=== PATIENT | male | born 1970 | race Caucasian/White ===

== ENCOUNTER 2021-09-15 12:50 | Inpatient (IN) | payer OTHER ==
[2021-09-15] MEDS ORDERED: ONDANSETRON *ODT* 4 MG TABLET SL PRN (14:28)
[2021-09-15] MEDS ORDERED: LOPERAMIDE HCL 2 MG CAPSULE PO PRN (14:28)
[2021-09-15] MEDS ORDERED: MAGNESIUM HYDROX 2400MG/30ML ORAL SUSPENSION 30 ML CUP PO PRN (14:28)
[2021-09-15] MEDS ORDERED: BENZOCAINE/MENTHOL (CHLORASEPTIC ) LOZENGE MM PRN (14:28)
[2021-09-15] MEDS ORDERED: BISMUTH SUBSALICYLATE 524 MG/30 ML PO PRN (14:28)
[2021-09-15] MEDS ORDERED: ACETAMINOPHEN 325 MG TABLET (FP) PO PRN ×2 (14:28)
[2021-09-15] MEDS ORDERED: DICYCLOMINE HCL 10 MG CAPSULE PO PRN (14:28)
[2021-09-15] MEDS ORDERED: MAGNESIUM CITRATE 300 ML BOTTLE PO PRN (14:28)
[2021-09-15] MEDS ORDERED: MAG HYDROX/AL HYDROX/SIMETH 30 ML UNIT-DOSE CUP PO PRN (14:28)
[2021-09-15 15:27] VITALS: BMI 28.4
[2021-09-15] MEDS ORDERED: LORazepam 1 MG TABLET ONE (15:57)
[2021-09-15] MEDS: LORazepam 1 MG TABLET PO PRN (16:00)
[2021-09-15] MEDS ORDERED: cloNIDine HCL 0.1 MG TABLET PO ONE (17:14)
[2021-09-15] MEDS: hydrOXYzine PAMOATE 25 MG CAPSULE (FP) PO SCH ×2 (17:37→22:27)
[2021-09-15] MEDS: PRENATAL VITAMINS W/ FOLIC ACID TABLET (FP) PO SCH (17:37)
[2021-09-15] MEDS: LORazepam 2 MG TABLET PO SCH ×2 (17:37→22:27)
[2021-09-15] MEDS: BENZOCAINE 28 GM HEMORRHOIDAL OINTMENT PR PRN (22:27)
[2021-09-15] MEDS: LOSARTAN POTASSIUM 50 MG TABLET PO SCH (22:27)
[2021-09-15] MEDS: DOCUSATE SODIUM 100 MG CAPSULE (FP) PO SCH (22:27)
[2021-09-15] MEDS: THIAMINE HCL 100 MG TABLET (FP) PO SCH (22:27)
[2021-09-15] MEDS: MELATONIN 5 MG TABLETS PO SCH (22:27)
[2021-09-15] MEDS: HYDROCORTISONE 2.5% TOPICAL CREAM 30 GM TUBE RC SCH (22:30)
[2021-09-16] MEDS: LORazepam 2 MG TABLET PO SCH ×4 (05:22→22:14)
[2021-09-16] MEDS: hydrOXYzine PAMOATE 25 MG CAPSULE (FP) PO SCH ×5 (05:22→22:14)
[2021-09-16] MEDS: BENZOCAINE 28 GM HEMORRHOIDAL OINTMENT PR PRN (10:16)
[2021-09-16] MEDS: PRENATAL VITAMINS W/ FOLIC ACID TABLET (FP) PO SCH (10:16)
[2021-09-16] MEDS: PANTOPRAZOLE 40 MG TABLET PO SCH (10:17)
[2021-09-16] MEDS: BICTEGRAV/EMTRICIT/TENOFOV (BIKTARVY) 50-200-25 MG TABLET PO SCH (10:17)
[2021-09-16] MEDS: HYDROCORTISONE 2.5% TOPICAL CREAM 30 GM TUBE RC SCH ×2 (10:19→22:14)
[2021-09-16 11:11] LABS: HEMATOCRIT 41.9 % (35.4-49); HEMOGLOBIN 14.1 GM/dL (11.7-16.9); MCH 30.2 pg (25.7-33.7); MCHC 33.6 g/dl (32.0-35.9); MEAN CELL VOLUME 89.9 fl (80-96); MEAN PLT VOLUME 7.4 fl (7.5-11.1); PLATELET COUNT 246 10^3/uL (134-434); RBC 4.66 M/mm3 (4.00-5.60); RDW 15.4 % (11.9-15.9); WHITE BLOOD COUNT 2.1 K/mm3 (4.0-10.0)
[2021-09-16 11:18] LABS: ALBUMIN 3.4 g/dl (3.4-5.0)
[2021-09-16 11:22] LABS: CREATININE 0.9 mg/dL (0.55-1.3)
[2021-09-16 11:23] LABS: BILIRUBIN,TOTAL 1.3 mg/dL (0.2-1); TOT PROT 8.3 g/dl (6.4-8.2)
[2021-09-16] MEDS: METOPROLOL TARTRATE 25 MG TABLET (FP) PO SCH (14:04)
[2021-09-16] MEDS: FLUTICASONE PROP 0.05% 16 GM NASAL SPRAY NS SCH ×2 (14:05→22:15)
[2021-09-16] MEDS: THIAMINE HCL 100 MG TABLET (FP) PO SCH (22:14)
[2021-09-16] MEDS: DOCUSATE SODIUM 100 MG CAPSULE (FP) PO SCH (22:14)
[2021-09-16] MEDS: MIRTAZAPINE 15 MG TABLET (FP) PO SCH (22:14)
[2021-09-16] MEDS: MELATONIN 5 MG TABLETS PO SCH (22:15)
[2021-09-16] MEDS: LOSARTAN POTASSIUM 50 MG TABLET PO SCH (22:15)
[2021-09-17] MEDS: hydrOXYzine PAMOATE 25 MG CAPSULE (FP) PO SCH ×5 (05:15→22:19)
[2021-09-17] MEDS: LORazepam 1 MG TABLET PO SCH ×4 (05:15→22:19)
[2021-09-17] MEDS: PRENATAL VITAMINS W/ FOLIC ACID TABLET (FP) PO SCH (10:14)
[2021-09-17] MEDS: BICTEGRAV/EMTRICIT/TENOFOV (BIKTARVY) 50-200-25 MG TABLET PO SCH (10:15)
[2021-09-17] MEDS: METOPROLOL TARTRATE 25 MG TABLET (FP) PO SCH (10:15)
[2021-09-17] MEDS: PANTOPRAZOLE 40 MG TABLET PO SCH (10:15)
[2021-09-17] MEDS: METHOCARBAMOL 500 MG TABLET PO PRN (10:17)
[2021-09-17] MEDS: HYDROCORTISONE 2.5% TOPICAL CREAM 30 GM TUBE RC SCH ×2 (10:18→22:21)
[2021-09-17] MEDS: FLUTICASONE PROP 0.05% 16 GM NASAL SPRAY NS SCH ×2 (10:19→22:22)
[2021-09-17] MEDS: LORazepam 1 MG TABLET PO PRN (13:44)
[2021-09-17] MEDS: IBUPROFEN 600 MG TABLET (FP) PO PRN (17:48)
[2021-09-17] MEDS: THIAMINE HCL 100 MG TABLET (FP) PO SCH (22:19)
[2021-09-17] MEDS: MELATONIN 5 MG TABLETS PO SCH (22:19)
[2021-09-17] MEDS: MIRTAZAPINE 15 MG TABLET (FP) PO SCH (22:19)
[2021-09-17] MEDS: LOSARTAN POTASSIUM 50 MG TABLET PO SCH (22:19)
[2021-09-17] MEDS: DOCUSATE SODIUM 100 MG CAPSULE (FP) PO SCH (22:19)
[2021-09-17] MEDS: BENZOCAINE 28 GM HEMORRHOIDAL OINTMENT PR PRN (22:22)
[2021-09-18] MEDS ORDERED: LORazepam 0.5 MG TABLET PO PRN
[2021-09-18] MEDS: hydrOXYzine PAMOATE 25 MG CAPSULE (FP) PO SCH ×4 (05:12→18:17)
[2021-09-18] MEDS: LORazepam 0.5 MG TABLET PO SCH ×3 (05:13→18:16)
[2021-09-18] MEDS: HYDROCORTISONE 2.5% TOPICAL CREAM 30 GM TUBE RC SCH ×2 (10:12→22:34)
[2021-09-18] MEDS: BICTEGRAV/EMTRICIT/TENOFOV (BIKTARVY) 50-200-25 MG TABLET PO SCH (10:13)
[2021-09-18] MEDS: PANTOPRAZOLE 40 MG TABLET PO SCH (10:13)
[2021-09-18] MEDS: METOPROLOL TARTRATE 25 MG TABLET (FP) PO SCH (10:13)
[2021-09-18] MEDS: PRENATAL VITAMINS W/ FOLIC ACID TABLET (FP) PO SCH (10:13)
[2021-09-18] MEDS: FLUTICASONE PROP 0.05% 16 GM NASAL SPRAY NS SCH ×2 (10:13→22:34)
[2021-09-18] MEDS: IBUPROFEN 400 MG TABLET (FP) PO PRN ×2 (10:16→22:39)
[2021-09-18] MEDS: METHOCARBAMOL 500 MG TABLET PO PRN (18:19)
[2021-09-18] MEDS: LOSARTAN POTASSIUM 50 MG TABLET PO SCH (22:33)
[2021-09-18] MEDS: MIRTAZAPINE 15 MG TABLET (FP) PO SCH (22:33)
[2021-09-18] MEDS: DOCUSATE SODIUM 100 MG CAPSULE (FP) PO SCH (22:33)
[2021-09-18] MEDS: MELATONIN 5 MG TABLETS PO SCH (22:34)
[2021-09-19] MEDS: THIAMINE HCL 100 MG TABLET (FP) PO SCH (00:53)
[2021-09-19] MEDS: hydrOXYzine PAMOATE 25 MG CAPSULE (FP) PO SCH ×3 (00:53→09:31)
[2021-09-19] MEDS: LORazepam 0.5 MG TABLET PO SCH (00:53)
[2021-09-19] MEDS ORDERED: LORazepam 0.5 MG TABLET PO ONE (05:00)
[2021-09-19] MEDS: IBUPROFEN 600 MG TABLET (FP) PO PRN (05:41)
[2021-09-19] MEDS: METHOCARBAMOL 500 MG TABLET PO PRN (05:41)
[2021-09-19 09:04] VITALS: BP 166/91; PULSE 87; TEMP 97.5
[2021-09-19] MEDS: FLUTICASONE PROP 0.05% 16 GM NASAL SPRAY NS SCH (09:31)
[2021-09-19] MEDS: PANTOPRAZOLE 40 MG TABLET PO SCH (09:31)
[2021-09-19] MEDS: BICTEGRAV/EMTRICIT/TENOFOV (BIKTARVY) 50-200-25 MG TABLET PO SCH (09:31)
[2021-09-19] MEDS: METOPROLOL TARTRATE 25 MG TABLET (FP) PO SCH (09:31)
[2021-09-19] MEDS: HYDROCORTISONE 2.5% TOPICAL CREAM 30 GM TUBE RC SCH (09:31)
[2021-09-19] MEDS: PRENATAL VITAMINS W/ FOLIC ACID TABLET (FP) PO SCH (09:32)
== END 2021-09-19 09:30 | disposition home or self-care (01) | DRG 775 ==
LOC: YASAS 12:50 → Y3N 16:11
PROVIDERS: ADMIT Allergy & Immunology; ATTEND Psychiatry & Neurology Psychiatry
PROC: HZ2ZZZZ Detoxification Services for Substance Abuse Treatment (ICD-10-PCS; principal; 2021-09-15)
DX: F10.230 Alcohol dependence with withdrawal, uncomplicated (principal); F19.24 Other psychoactive substance dependence with psychoactive substance-induced mood disorder; F32.A Depression, unspecified; Z21 Asymptomatic human immunodeficiency virus [HIV] infection status; I10 Essential (primary) hypertension; D70.9 Neutropenia, unspecified; D72.819 Decreased white blood cell count, unspecified; R94.5 Abnormal results of liver function studies; K21.9 Gastro-esophageal reflux disease without esophagitis; Z87.891 Personal history of nicotine dependence
CPT/HCPCS: 36415; 80053; 85027; 86780; 93005; 93010; C9803-CS; J0735; U0003; U0005

== ENCOUNTER 2023-02-28 18:09 | Inpatient (IN) | payer OTHER ==
[2023-02-28 18:30] VITALS: BMI 25.4
[2023-02-28] MEDS ORDERED: MAG HYDROX/AL HYDROX/SIMETH 30 ML UNIT-DOSE CUP PO PRN (19:10)
[2023-02-28] MEDS ORDERED: BENZONATATE 200 MG CAPSULE PO PRN (19:10)
[2023-02-28] MEDS ORDERED: DICYCLOMINE HCL 10 MG CAPSULE PO PRN (19:10)
[2023-02-28] MEDS ORDERED: NALOXONE HCL 0.4 MG/ML VIAL IM PRN (19:10)
[2023-02-28] MEDS ORDERED: ONDANSETRON *ODT* 4 MG TABLET SL PRN (19:10)
[2023-02-28] MEDS ORDERED: guaiFENesin 600 MG TABLET.ER (FP) PO PRN (19:10)
[2023-02-28] MEDS ORDERED: BENZOCAINE/MENTHOL (CHLORASEPTIC ) LOZENGE MM PRN (19:10)
[2023-02-28] MEDS ORDERED: chlordiazePOXIDE HCL 25 MG CAPSULE PO PRN (19:10)
[2023-02-28] MEDS ORDERED: BISMUTH SUBSALICYLATE 524 MG/30 ML PO PRN (19:10)
[2023-02-28] MEDS ORDERED: NALOXONE HCL (KLOXXADO) 8 MG SPRAY NS PRN (19:10)
[2023-02-28] MEDS ORDERED: POLYETHYLENE GLYCOL (HEALTHYLAX) 3350 17 GM PACKET PO PRN (19:10)
[2023-02-28] MEDS ORDERED: ACETAMINOPHEN 325 MG TABLET (FP) PO PRN (19:10)
[2023-02-28] MEDS ORDERED: MAGNESIUM HYDROX 2400MG/30ML ORAL SUSPENSION 30 ML CUP PO PRN (19:10)
[2023-02-28] MEDS ORDERED: LOPERAMIDE HCL 2 MG CAPSULE PO PRN (19:10)
[2023-02-28] MEDS: hydrOXYzine PAMOATE 25 MG CAPSULE (FP) PO PRN (20:21)
[2023-02-28] MEDS: chlordiazePOXIDE HCL 25 MG CAPSULE PO SCH (22:39)
[2023-02-28] MEDS: MELATONIN 5 MG TABLETS PO SCH (22:40)
[2023-02-28] MEDS: THIAMINE HCL 100 MG TABLET (FP) PO SCH (22:40)
[2023-03-01] MEDS: chlordiazePOXIDE HCL 25 MG CAPSULE PO SCH ×4 (05:55→22:37)
[2023-03-01] MEDS: METHOCARBAMOL 500 MG TABLET PO PRN ×2 (10:22→17:12)
[2023-03-01] MEDS: PRENATAL VITAMINS W/ FOLIC ACID TABLET (FP) PO SCH (10:22)
[2023-03-01] MEDS: hydrOXYzine PAMOATE 25 MG CAPSULE (FP) PO PRN (10:22)
[2023-03-01 10:57] LABS: HEMATOCRIT 38.9 % (35.4-49); HEMOGLOBIN 13.2 GM/dL (11.7-16.9); MCH 31.7 pg (25.7-33.7); MCHC 33.9 g/dl (32.0-35.9); MEAN CELL VOLUME 93.5 fl (80-96); MEAN PLT VOLUME 7.1 fl (7.5-11.1); PLATELET COUNT 207 10^3/uL (134-434); RBC 4.16 M/mm3 (4.00-5.60); RDW 15.2 % (11.9-15.9); WHITE BLOOD COUNT 2.7 K/mm3 (4.0-10.0)
[2023-03-01 11:03] LABS: CHLORIDE 114 mmol/L (98-107); POTASSIUM 3.7 mmol/L (3.5-5.1); SODIUM 142 mmol/L (136-145)
[2023-03-01] MEDS: METOPROLOL TARTRATE 25 MG TABLET (FP) PO SCH (11:14)
[2023-03-01] MEDS: BICTEGRAV/EMTRICIT/TENOFOV (BIKTARVY) 50-200-25 MG TABLET PO SCH (11:14)
[2023-03-01 11:16] LABS: ANION GAP 7 mmol/L (4-13); BLOOD UREA NITROGEN 18.7 mg/dL (7-18); CALCIUM 8.7 mg/dL (8.5-10.1); CO2 21 mmol/L (21-32)
[2023-03-01 11:17] LABS: ALBUMIN 3.4 g/dl (3.4-5.0); GLUCOSE,RANDOM 102 mg/dL (74-106)
[2023-03-01 11:19] LABS: CREATININE 1.2 mg/dL (0.55-1.3); SGPT/ALT 70 U/L (13-61)
[2023-03-01 11:20] LABS: SGOT/AST 66 U/L (15-37)
[2023-03-01 11:21] LABS: BILIRUBIN,TOTAL 0.7 mg/dL (0.2-1); TOT PROT 7.3 g/dl (6.4-8.2)
[2023-03-01 11:22] LABS: ALK PHOS 103 U/L (45-117)
[2023-03-01] MEDS ORDERED: FLU VACCINE (FLULAVAL) PF 60 MCG/0.5 ML SYRINGE 2023-2024 IM ONE (12:00)
[2023-03-01] MEDS: PANTOPRAZOLE 40 MG TABLET PO SCH (12:24)
[2023-03-01] MEDS: THIAMINE HCL 100 MG TABLET (FP) PO SCH (22:37)
[2023-03-01] MEDS: MELATONIN 5 MG TABLETS PO SCH (22:37)
[2023-03-01] MEDS: LOSARTAN POTASSIUM 50 MG TABLET PO SCH (22:37)
[2023-03-02] MEDS: chlordiazePOXIDE HCL 25 MG CAPSULE PO SCH ×4 (05:34→22:26)
[2023-03-02] MEDS: IBUPROFEN 400 MG TABLET (FP) PO PRN (05:35)
[2023-03-02] MEDS: PANTOPRAZOLE 40 MG TABLET PO SCH (10:43)
[2023-03-02] MEDS: METOPROLOL TARTRATE 25 MG TABLET (FP) PO SCH (10:43)
[2023-03-02] MEDS: PRENATAL VITAMINS W/ FOLIC ACID TABLET (FP) PO SCH (10:43)
[2023-03-02] MEDS: BICTEGRAV/EMTRICIT/TENOFOV (BIKTARVY) 50-200-25 MG TABLET PO SCH (10:43)
[2023-03-02] MEDS: HYDROCORTISONE 2.5% TOPICAL CREAM 30 GM TUBE RC SCH (22:25)
[2023-03-02] MEDS: LOSARTAN POTASSIUM 50 MG TABLET PO SCH (22:25)
[2023-03-02] MEDS: THIAMINE HCL 100 MG TABLET (FP) PO SCH (22:25)
[2023-03-02] MEDS: MELATONIN 5 MG TABLETS PO SCH (22:25)
[2023-03-03] MEDS ORDERED: chlordiazePOXIDE HCL 10 MG CAPSULE PO PRN
[2023-03-03] MEDS: chlordiazePOXIDE HCL 10 MG CAPSULE PO SCH ×4 (05:28→22:16)
[2023-03-03] MEDS: IBUPROFEN 600 MG TABLET (FP) PO PRN ×2 (05:29→22:18)
[2023-03-03] MEDS: METOPROLOL TARTRATE 25 MG TABLET (FP) PO SCH (10:05)
[2023-03-03] MEDS: PANTOPRAZOLE 40 MG TABLET PO SCH (10:05)
[2023-03-03] MEDS: BICTEGRAV/EMTRICIT/TENOFOV (BIKTARVY) 50-200-25 MG TABLET PO SCH (10:05)
[2023-03-03] MEDS: PRENATAL VITAMINS W/ FOLIC ACID TABLET (FP) PO SCH (10:05)
[2023-03-03] MEDS: HYDROCORTISONE 2.5% TOPICAL CREAM 30 GM TUBE RC SCH ×2 (10:06→22:17)
[2023-03-03] MEDS: LOSARTAN POTASSIUM 50 MG TABLET PO SCH (22:15)
[2023-03-03] MEDS: THIAMINE HCL 100 MG TABLET (FP) PO SCH (22:15)
[2023-03-03] MEDS: MIRTAZAPINE 15 MG TABLET (FP) PO SCH (22:15)
[2023-03-04] MEDS: chlordiazePOXIDE HCL 10 MG CAPSULE PO SCH ×2 (05:30→17:21)
[2023-03-04] MEDS: IBUPROFEN 600 MG TABLET (FP) PO PRN ×2 (05:31→17:25)
[2023-03-04] MEDS: PRENATAL VITAMINS W/ FOLIC ACID TABLET (FP) PO SCH (10:14)
[2023-03-04] MEDS: hydrOXYzine PAMOATE 25 MG CAPSULE (FP) PO PRN (10:15)
[2023-03-04] MEDS: METOPROLOL TARTRATE 25 MG TABLET (FP) PO SCH (10:15)
[2023-03-04] MEDS: PANTOPRAZOLE 40 MG TABLET PO SCH (10:15)
[2023-03-04] MEDS: FLUTICASONE PROP 0.05% 16 GM NASAL SPRAY NS PRN (10:15)
[2023-03-04] MEDS: BICTEGRAV/EMTRICIT/TENOFOV (BIKTARVY) 50-200-25 MG TABLET PO SCH (10:15)
[2023-03-04] MEDS: HYDROCORTISONE 2.5% TOPICAL CREAM 30 GM TUBE RC SCH ×2 (10:15→22:00)
[2023-03-04] MEDS: LOSARTAN POTASSIUM 50 MG TABLET PO SCH (22:02)
[2023-03-04] MEDS: THIAMINE HCL 100 MG TABLET (FP) PO SCH (22:02)
[2023-03-04] MEDS: MIRTAZAPINE 15 MG TABLET (FP) PO SCH (22:02)
[2023-03-04] MEDS: METHOCARBAMOL 500 MG TABLET PO PRN (22:03)
[2023-03-05] MEDS ORDERED: chlordiazePOXIDE HCL 10 MG CAPSULE PO ONE (05:00)
[2023-03-05] MEDS: IBUPROFEN 400 MG TABLET (FP) PO PRN (05:26)
[2023-03-05 09:40] VITALS: BP 148/88; PULSE 68; RESP 16; TEMP 98
[2023-03-05] MEDS: HYDROCORTISONE 2.5% TOPICAL CREAM 30 GM TUBE RC SCH (10:17)
[2023-03-05] MEDS: METOPROLOL TARTRATE 25 MG TABLET (FP) PO SCH (10:18)
[2023-03-05] MEDS: PRENATAL VITAMINS W/ FOLIC ACID TABLET (FP) PO SCH (10:18)
[2023-03-05] MEDS: BICTEGRAV/EMTRICIT/TENOFOV (BIKTARVY) 50-200-25 MG TABLET PO SCH (10:18)
[2023-03-05] MEDS: PANTOPRAZOLE 40 MG TABLET PO SCH (10:19)
[2023-03-05] MEDS: FLUTICASONE PROP 0.05% 16 GM NASAL SPRAY NS PRN (10:19)
== END 2023-03-05 10:54 | disposition home or self-care (01) | DRG 775 ==
LOC: YASAS 18:09 → Y6N 19:40
PROVIDERS: ADMIT Allergy & Immunology; ATTEND Surgery
PROC: HZ2ZZZZ Detoxification Services for Substance Abuse Treatment (ICD-10-PCS; principal; 2023-02-28)
DX: F10.230 Alcohol dependence with withdrawal, uncomplicated (principal); F10.282 Alcohol dependence with alcohol-induced sleep disorder; F32.9 Major depressive disorder, single episode, unspecified; Z21 Asymptomatic human immunodeficiency virus [HIV] infection status; D72.810 Lymphocytopenia; I10 Essential (primary) hypertension; K21.9 Gastro-esophageal reflux disease without esophagitis; M54.50 Low back pain, unspecified; G89.29 Other chronic pain; Z62.810 Personal history of physical and sexual abuse in childhood; Z87.891 Personal history of nicotine dependence
CPT/HCPCS: 36415; 80053; 80307; 85027; 86780; 87635; 90686; G0008